=== PATIENT | female | born 1965 | race Caucasian/White ===

== ENCOUNTER 2019-12-18 14:04 | Emergency (ER) | payer OTHER ==
[~2019-12-18] VITALS: Ht 167.6 cm; Wt 84.1 kg
[2019-12-18] MEDS ORDERED: LISI-660 PO (14:09)
[2019-12-18] MEDS ORDERED: HYDR-1475 PO (14:09)
[2019-12-18] MEDS ORDERED: ALBU8HFA IH (14:09)
[2019-12-18] MEDS ORDERED: BACITRACIN 0.9 GM PACKET OINTMENT TP ONE (15:15)
[2019-12-18] MEDS ORDERED: LIDOCAINE/PF 1% 5 ML VIAL INJ ONE (15:15)
[2019-12-18 16:00] VITALS: BP 122/81
== END 2019-12-18 16:20 | disposition home or self-care (01) ==
LOC: EMS 14:07
DX: S61.210A Laceration without foreign body of right index finger without damage to nail, initial encounter (principal); S61.011A Laceration without foreign body of right thumb without damage to nail, initial encounter; J45.909 Unspecified asthma, uncomplicated; I10 Essential (primary) hypertension; W45.8XXA Other foreign body or object entering through skin, initial encounter; Y93.89 Activity, other specified; Y92.89 Other specified places as the place of occurrence of the external cause; Y99.8 Other external cause status
CPT/HCPCS: 12002; 99283; J2001